=== PATIENT | male | born 1975 | race Caucasian/White ===

== ENCOUNTER → 2016-06-18 | Outpatient (CLI) | payer OTHER | LOC: BMCIMAGING 09:32 | PROVIDERS: ATTEND Family Medicine | DX: R07.81 Pleurodynia (principal) | CPT/HCPCS: 71101-PO ==

== ENCOUNTER → 2017-03-30 | Outpatient (CLI) | payer OTHER | LOC: BMCIMAGING 12:12 | PROVIDERS: ATTEND Internal Medicine | DX: R05 Cough (principal) ==